=== PATIENT | female | born 1985 | race Caucasian/White ===

== ENCOUNTER 2017-10-08 15:47 | Emergency (ER) | payer SELFPAY ==
[~2017-10-08] VITALS: Ht 160 cm; Wt 63.6 kg
[2017-10-08 15:48] VITALS: BP 136/82; PULSE 112; RESP 20; TEMP 98; O2SAT 100
[2017-10-08] MEDS ORDERED: DIAZ2 PO (18:29)
--- NOTE | 2017-10-08 18:44 | PD ---
HPI . Neck and back pain Chief Complaint: Back/ Neck Pain or Injury Time Seen by Provider: 18:23 Travel History International Travel<30 days: No Contact w/Intl Traveler<30days: No Traveled to known affect area: No History of Present Illness HPI 32-year-old female presents emergency department for evaluation of neck and back pain that she states she's been dealing with for several years. Patient just moved out here from [place] and her primary care in [place] had her on Valium and Lortab to manage the pain. The patient is out of her medication. The patient denies new injury, trauma, falls. Patient denies any incontinence of urine or stool. The patient denies any fever or chills or malaise. Patient denies any abdominal pain, nausea or vomiting. The patient denies any paresthesias or saddle numbness. Patient denies any IV drug use. Allergies-Medications (Allergen,Severity, Reaction): Coded Allergies: No Known Allergies (Verified Allergy, Unknown, 10/08/17) Reported Meds & Prescriptions Reported Meds & Active Scripts Active Reported Valium (Diazepam) 2 Mg Tab 2 Mg PO BID PRN Review of Systems Except as stated in HPI: all other systems reviewed are Neg Physical Exam Narrative GENERAL: Well-nourished, well-developed 32-year-old female patient in no acute distress. Nontoxic appearing. SKIN: Focused skin assessment warm/dry. HEAD: Normocephalic. Atraumatic. EYES: No scleral icterus. No injection or drainage. NECK: Supple, trachea midline. No JVD or lymphadenopathy. CARDIOVASCULAR: Regular rate and rhythm without murmurs, gallops, or rubs. RESPIRATORY: Breath sounds equal bilaterally. No accessory muscle use. GASTROINTESTINAL: Abdomen soft, non-tender, nondistended. MUSCULOSKELETAL: Full range of motion to bilateral upper and lower extremities. No obvious deformity, ecchymosis, erythema cyanosis, or edema. BACK: Paraspinal tenderness extending downward from cervical to lumbar region. No obvious deformity, ecchymosis, erythema, edema. No CVA tenderness. Data Data Last Documented VS Vital Signs Date Time Temp Pulse Resp B/P (MAP) Pulse Ox O2 Delivery O2 Flow Rate FiO2 10/08/17 15:48 98.0 112 20 136/82 (100) 100 Room Air MDM Medical Screen Exam Complete: Yes Emergency Medical Condition: Yes Differential Diagnosis Differential diagnoses include but not limited to muscle spasm, muscle cramp, muscle strain, muscle strain, exacerbation of chronic back pain, herniated disks Narrative Course 32-year-old female presents emergency department for evaluation of back pain that she struggled with for multiple years and been given narcotics in the past. Patient is new to [place] and does not have a primary care and is out of her Valium and Lortab. Patient denies any new injuries, traumas or falls. A medical screening exam was performed: At the time of evaluation the presenting medical condition was determined not to be of an emergent nature. The patient was given the option of receiving additional care, but declined. Patient was given options for additional community resources from which to obtain care. The Patient Has Been advised to seek medical attention for their presenting complaint. The patient has been advised to return to the ER at any time if an emergent condition develops. Primary Impression: Encounter for medical screening examination Condition: Stable Natalia Hardin Oct 08, 2017 18:44
== END 2017-10-08 19:06 | disposition left against medical advice (07) ==
LOC: NEPK 15:47
DX: M54.9 Dorsalgia, unspecified (principal)
CPT/HCPCS: 99281